=== PATIENT | female | born 1945 | race Caucasian/White ===

== ENCOUNTER 2020-12-05 12:57 | Inpatient (IN) | payer MEDICARE, OTHER ==
[2020-12-05 14:59] LABS: BASOPHIL 0.4 % (0-2); EOSINOPHIL 0.1 % (0-7); HCT 40.2 % (37.0-47.0); HGB 13.5 g/dl (12.5-16.0); LYMPHOCYTE 6.8 % (15-48); MCH 32.9 pg (25.0-31.0); MCHC 33.6 g/dL (32.0-36.0); MONOCYTE 8.8 % (0-12); MPV 10.1 fL (6.0-9.5); NEUTROPHIL 82.8 % (41-80); NRBC 0; PLT 255 K/uL (150-400); RDW 12.9 % (11.5-14.0); WBC 19.2 K/uL (4.0-10.5)
[2020-12-05 15:16] LABS: ALBUMIN 3.6 g/dL (3.4-5.0); BILIRUBIN - TOTAL 0.7 mg/dL (0.2-1.0); BUN/CREAT RATIO (CALC) 17.2 RATIO; CREATININE 0.64 mg/dL (0.51-0.95); POTASSIUM 4.1 mmol/L (3.5-5.1); TOTAL PROTEIN 6.6 g/dL (6.4-8.2)
[2020-12-05 15:18] LABS: INR 1.09 (0.9-1.2); PROTHROMBIN TIME 13.4 SECONDS (11.4-13.6); PTT 25.1 SECONDS (22.2-34.7)
[2020-12-05 15:38] LABS: BILIRUBIN 1+ mg/dL (NEGATIVE); BLOOD NEGATIVE Ery/uL (NEGATIVE); CLARITY CLEAR (CLEAR); GLUCOSE (U) 3+ mg/dL (NORMAL); LEUKOCYTES NEGATIVE Leu/uL (NEGATIVE); NITRITE POSITIVE (NEGATIVE); PROTEIN 2+ mg/dL (NEGATIVE); SPECIFIC GRAVITY 1.025 (1.001-1.030)
[2020-12-05 15:41] LABS: COLOR ORANGE (YELLOW)
[2020-12-05 15:45] LABS: BACTERIA 1+; URINARY WBC RARE; YEAST PRESENT
[2020-12-05 16:15] LABS: LACTIC ACID 2.8 mmol/L (0.4-1.9)
[2020-12-05] MEDS ORDERED: ATENOLOL25 MG PO (18:04)
[2020-12-05] MEDS ORDERED: LIPITOR40 MG PO (18:04)
[2020-12-05] MEDS ORDERED: BENAZEPRIL HCL20 MG PO (18:05)
[2020-12-05] MEDS ORDERED: HYDROCODON-ACE1 EAC2 PO (18:06)
[2020-12-05] MEDS ORDERED: LANTUS **100 UNITS/ SC (18:07)
[2020-12-05] MEDS ORDERED: HUMALOG JU100 UNIT/1 SC (18:07)
[2020-12-05] MEDS ORDERED: METFORMIN HCL500 MG PO (18:08)
[2020-12-05] MEDS ORDERED: MOVANTIK25 MG PO (18:09)
[2020-12-05] MEDS ORDERED: LYRICA 50MG CAP50 MG PO (18:10)
[2020-12-05] MEDS ORDERED: PRILOSEC20 MG PO (18:10)
[2020-12-05 23:30] LABS: HCT 31.9 % (37.0-47.0); HGB 10.4 g/dL (12.5-16.0)
[2020-12-06 06:16] LABS: BASOPHIL 0.6 % (0-2); EOSINOPHIL 0.3 % (0-7); HCT 32.4 % (37.0-47.0); HGB 10.5 g/dl (12.5-16.0); MCH 32.2 pg (25.0-31.0); MCHC 32.4 g/dL (32.0-36.0); MCV 99.4 fL (78.0-100.0); MONOCYTE 14.7 % (0-12); MPV 10.2 fL (6.0-9.5); NEUTROPHIL 63.4 % (41-80); NRBC 0; PLT 177 K/uL (150-400); RBC 3.26 M/uL (4.20-5.40); RDW 13.2 % (11.5-14.0); WBC 9.6 K/uL (4.0-10.5)
[2020-12-06 06:37] LABS: BUN/CREAT RATIO (CALC) 18.3 RATIO; CREATININE 0.6 mg/dL (0.51-0.95); POTASSIUM 4.8 mmol/L (3.5-5.1)
[2020-12-06 14:54] LABS: HCT 23.9 % (37.0-47.0); HGB 7.6 g/dL (12.5-16.0)
--- NOTE | 2020-12-06 16:52 | NUR ---
TRANSFUSING 1 UNIT PRBC, HBG DROPPED 7.6 FROM 10.5, AFTER SURGERY
[2020-12-06 21:04] LABS: HCT 29.6 % (37.0-47.0); HGB 9.5 g/dL (12.5-16.0)
[2020-12-07 05:55] LABS: HCT 33.5 % (37.0-47.0); HGB 11.2 g/dl (12.5-16.0); MCH 31.4 pg (25.0-31.0); MCHC 33.4 g/dL (32.0-36.0); MCV 93.8 fL (78.0-100.0); MPV 11.4 fL (6.0-9.5); RBC 3.57 M/uL (4.20-5.40); RDW 14.6 % (11.5-14.0); WBC 13.9 K/uL (4.0-10.5)
[2020-12-07 06:23] LABS: CREATININE 0.75 mg/dL (0.51-0.95); POTASSIUM 4.6 mmol/L (3.5-5.1)
--- NOTE | 2020-12-07 14:13 | NUR ---
ADVISED BY IRASEMA WALKER RN THAT SHE HAS SPOKEN WITH PT YOSSI WHALEY, AND SHE WOULD LIKE [facility] AND [facility] AT [facility]. SPOKE WITH PT. AND SHE WOULD LIKE TO HAVE [facility] THIS IS MUCH CLOSER TO HER HOME. REFERRAL HAS BEEN MADE TO [facility] WITH [facility]. ADVISED [facility] THAT PER IRASEMA THE PT MAY DISCHARGE SUN OR SUNDAY. PT. SIGNED THE CHOICE FORM.
[2020-12-08 08:50] LABS: BASOPHIL 0.2 % (0-2); EOSINOPHIL 0.3 % (0-7); HCT 25.1 % (37.0-47.0); HGB 8.6 g/dl (12.5-16.0); LYMPHOCYTE 9.5 % (15-48); MCH 31.9 pg (25.0-31.0); MCHC 34.3 g/dL (32.0-36.0); MONOCYTE 16.9 % (0-12); MPV 10.2 fL (6.0-9.5); NEUTROPHIL 72.5 % (41-80); NRBC 0; PLT 130 K/uL (150-400); RDW 14.6 % (11.5-14.0)
[2020-12-08 09:10] LABS: BUN/CREAT RATIO (CALC) 24.2 RATIO; CREATININE 0.66 mg/dL (0.51-0.95); POTASSIUM 4.2 mmol/L (3.5-5.1)
--- NOTE | 2020-12-08 10:02 | NUR ---
TC TO [facility] AT [facility]. SHE IS OUT OF THE OFFICE TODAY, SPOKE WITH STEPHANIE WHO IS COVERING FOR [facility]. ADVISED THAT I HAVE JUST FAXED PT/OT [facility]. STEPHANIE WILL ADVISE OF ACCEPTANCE. ALSO ADVISED THAT IRASEMA WALKER HAD TOLD ME PT SHOULD D/C ON SUNDAY, 12/09.
--- NOTE | 2020-12-08 11:30 | NUR ---
0900- RECIEVED DC AVILES ORDER, AVILES DC'D AT 0912. PT EDUCATED THAT REMOVING THE AVILES COULD BE UNCOMFORTABLE, AVILES WAS 18F AND 10ML SYRINGE WAS USED TO REMOVE WATER FROM BALLOON, 9ML WAS REMOVED AND RN DOUBLE CHECKED TO MAKE SURE ALL WAWTER WAS REMOVED. PT WAS EDUCATED ON NEEDING TO VOID USING THE RESTROOM. 0930- PT HAS A BED BATH TODAY AND WASHED HAIR, BRUSHED TEETH. PT STATED SHE " FELT SO MUCH BETTER." 1000- TRANSFER ORDERS RECIEVED FOR PT. 1025- ATTEMPT #1 FOR REPORT CALLED TO MED SURG. GHAZAL RN STATED NANCY RN WOULD CALL BACK. 1128- SPOKE WITH GHAZAL ABOUT REPORT ON PT AND GHAZAL TOOK REPORT. WILL TRANSFER PT OVER SOON.
--- NOTE | 2020-12-08 14:37 | NUR ---
PT. HAS BEEN APPROVED FOR [facility] FOR 12/09/20. THE REPORT NUMBER IS [phone] FAX NUMBER IS [phone]. PT. HAS BEEN MADE AWARE OF APPROVAL. ADVISED NURSE, NANCY OF PATIENTS APPROVAL TO [facility].
--- NOTE | 2020-12-08 14:52 | NUR ---
ADVISED DR. PASCAL THAT [facility] HAS REQUESTED A NEW COVID TEST. ADVISED NURSE NANCY WELL.
[2020-12-09 06:12] LABS: HCT 23.9 % (37.0-47.0); MCHC 33.5 g/dL (32.0-36.0); MCV 95.6 fL (78.0-100.0); MPV 10.5 fL (6.0-9.5); RBC 2.5 M/uL (4.20-5.40); RDW 14.3 % (11.5-14.0); WBC 8.4 K/uL (4.0-10.5)
[2020-12-09 06:32] LABS: CREATININE 0.65 mg/dL (0.51-0.95)
--- NOTE | 2020-12-09 14:32 | NUR ---
SHE IS RECEIVING BLOOD TODAY, DR. PASCAL STATED HE WILL D/.C PT TO [facility] IN THE MORNING 12/10/20. ADVISED NURSE, NANCY AND PT OF THE DC/ INFORAMTION. TC TO [facility] AND ADVISED HER OF THE CHANGE IN DC. PT. MUST DC TO [facility] ON SUNDAY OR SHE WILL NEED A NEW COVID TEST IF DC IS AFTER SUNDAY.
[2020-12-10 06:32] LABS: HCT 26.7 % (37.0-47.0); HGB 9.2 g/dl (12.5-16.0); MCH 31.5 pg (25.0-31.0); MCHC 34.5 g/dL (32.0-36.0); MCV 91.4 fL (78.0-100.0); MPV 10.1 fL (6.0-9.5); RBC 2.92 M/uL (4.20-5.40); RDW 14.6 % (11.5-14.0); WBC 7.3 K/uL (4.0-10.5)
[2020-12-10] MEDS ORDERED: XARELTO10 MG PO (12:04)
[2020-12-10] MEDS ORDERED: FEOSOL325 MG PO (12:04)
--- NOTE | 2020-12-10 13:55 | NUR ---
12/10/20 Patient will be dc to [facility] today.
[2020-12-10] MEDS ORDERED: HYDROCODON-ACE1 EAC2 PO (14:03)
[2020-12-10] MEDS ORDERED: COLACE100 MG PO (14:03)
== END 2020-12-10 15:06 | DRG 481 ==
LOC: FER 12:57 → FMS 15:01 → FTCU 15:04 → FICU 15:04 → FTCU 12-06 15:03 → FMS 12-08 09:39
PROVIDERS: Emergency Medicine; Hospitalist; Legal Medicine; Nurse Anesthetist, Certified Registered; Nurse Practitioner; ADMIT Allergy & Immunology Allergy
PROC: 0QS604Z Reposition Right Upper Femur with Internal Fixation Device, Open Approach (ICD-10-PCS; 2020-12-06)
PROC: 30233N1 Transfusion of Nonautologous Red Blood Cells into Peripheral Vein, Percutaneous Approach (ICD-10-PCS; principal; 2020-12-06 10:15)
PROC: 30233N1 Transfusion of Nonautologous Red Blood Cells into Peripheral Vein, Percutaneous Approach (ICD-10-PCS; 2020-12-07)
PROC: 30233N1 Transfusion of Nonautologous Red Blood Cells into Peripheral Vein, Percutaneous Approach (ICD-10-PCS; 2020-12-09)
DX: S72.121A Displaced fracture of lesser trochanter of right femur, initial encounter for closed fracture (principal); M97.01XA Periprosthetic fracture around internal prosthetic right hip joint, initial encounter; N39.0 Urinary tract infection, site not specified; M97.11XA Periprosthetic fracture around internal prosthetic right knee joint, initial encounter; D62 Acute posthemorrhagic anemia; E11.65 Type 2 diabetes mellitus with hyperglycemia; Z20.822 Contact with and (suspected) exposure to COVID-19; Z96.653 Presence of artificial knee joint, bilateral; Z96.643 Presence of artificial hip joint, bilateral; F41.1 Generalized anxiety disorder; F32.9 Major depressive disorder, single episode, unspecified; E11.40 Type 2 diabetes mellitus with diabetic neuropathy, unspecified; I10 Essential (primary) hypertension; E78.5 Hyperlipidemia, unspecified; D64.9 Anemia, unspecified; K21.9 Gastro-esophageal reflux disease without esophagitis; E11.319 Type 2 diabetes mellitus with unspecified diabetic retinopathy without macular edema; E86.0 Dehydration; I25.10 Atherosclerotic heart disease of native coronary artery without angina pectoris; Z90.710 Acquired absence of both cervix and uterus; Z90.12 Acquired absence of left breast and nipple; Z88.0 Allergy status to penicillin; Z87.891 Personal history of nicotine dependence; Z98.890 Other specified postprocedural states; Z79.4 Long term (current) use of insulin; Z79.899 Other long term (current) drug therapy; Z85.3 Personal history of malignant neoplasm of breast; Z92.21 Personal history of antineoplastic chemotherapy; W01.0XXA Fall on same level from slipping, tripping and stumbling without subsequent striking against object, initial encounter
CPT/HCPCS: 36415; 36430; 36600; 71045; 73502; 73552; 76000; 80048; 80053; 80061; 81001; 82803; 82962; 83036; 83605; 84484; 85014; 85018; 85025; 85610; 85730; 86850; 86900; 86901; 86922; 87040; 87088; 93005; 94010; 96374; 96375; 97110; 97162; 97166; 97530; 97530-GP; 97535; C1713; C1776; C9113; G0378; J0610; J0696; J1170; J1650; J1940; J2270; J2370; J2405; J2704; J2795; J3010; J7030; J7040; J7050; J7120; P9016; U0002